=== PATIENT | male | born 1955 ===

== ENCOUNTER 2024-03-04 06:20 | Day surgery (SDC) | payer OTHER, SELFPAY ==
[2024-02-20 06:33] VITALS: BMI 29.8
[2024-02-20 08:51] LABS: Hematocrit 41.4 % (39.0-52.0); Hemoglobin 13.8 g/dL (13.0-18.0); Mean Corp Hgb Conc. 33.3 g/dL (33.0-37.0); Mean Corpuscular Hgb 30.7 pg (27.0-31.0); Mean Platelet Volume 10.6 fL (7.4-10.4); Platelet Count 221 10^3/uL (130-400); Red Cell Dist. Width 13.1 % (11.5-14.5); White Blood Cell Count 6.1 10^3/uL (4.8-10.8)
[2024-02-20 09:19] LABS: INR 1.06; PT 13.9 Sec (11.4-14.6)
[2024-02-20 09:20] LABS: APTT 29.9 Sec (23.4-35.0)
[2024-02-20 10:57] LABS: ALT (SGPT) 26 U/L (0-50); AST (SGOT) 36 U/L (17-59); Albumin 4.3 g/dl (3.5-5.0); Alkaline Phosphatase 37 U/L (38-126); Blood Urea Nitrogen 23 mg/dl (9-20); Calcium 11.5 mg/dl (8.4-10.2); Carbon Dioxide 30 mmol/L (22-30); Chloride 101 mmol/L (98-107); Estimated Creatinine Clearance 61 ml/min; Glucose 81 mg/dl (70-99); Sodium 140 mmol/L (135-145); Total Bilirubin 0.5 mg/dl (0.2-1.3); eGFR 59.84
[2024-03-04] VITALS (7 sets, daily range): BP systolic 114–136; BP diastolic 50–78; BMI 29.8
[2024-03-04] MEDS: TYLENOL 1000 MG PO (09:00)
[2024-03-04] MEDS: NEURONTIN 300 MG PO (09:00)
[2024-03-04] MEDS: HEPARIN 5000 UNITS SC (09:01)
[2024-03-04] MEDS: NORMOSOL-R 1000 IV (09:02)
[2024-03-04 10:41] LABS: Turbo PTH 568.5 pg/ml (13.6-85.8)
[2024-03-04 11:47] LABS: Turbo PTH 39.1 pg/ml (13.6-85.8)
--- NOTE | 2024-03-04 12:30 | OR.RPT ---
Operative Report
Operative Report
Patient Name: Gerda Lester
Date of : 1955
Date of Operation: March 04, 2024
Preoperative Diagnosis: �Hyperparathyroidism - E210
Postoperative Diagnosis: Same
Surgeon: Sami Cornejo M.D.
Operation: Minimally Invasive Right Superior Parathyroidectomy - 82079
Anesthesia: GET
Estimated Blood Loss: 5 cc
Drains: None
Specimen: Right superior neck nodule, rule out parathyroid adenoma
Complications: �None
Procedure:
The patient was taken to the operating room and placed in the usual supine position. After adequate general endotracheal anesthesia was established, the patient's neck was extended, prepped, and draped in the typical sterile fashion. A 4 cm
transcervical incision was made two fingerbreadths above the sternal notch. The skin incision was made with the #15 blade, and this was taken through the skin into the subcutaneous tissue. The underlying platysma muscle was divided, and subplatysmal
flaps were created superiorly to the thyroid cartilage and inferiorly to the sternal notch. Strap muscles were identified and at the midline.
Attention was turned to the patient's right side of the neck. The right thyroid lobe was mobilized medially. During this process, the right recurrent laryngeal nerve was identified and preserved throughout the surgery. The right upper neck nodule
was identified and noted to be enlarged, excised, and sent to the pathology department, which showed a hypercellular parathyroid gland. The normal-appearing right inferior parathyroid gland was identified and preserved. The intraoperative PTH levels
normalized.
After obtaining adequate hemostasis, the strap muscles were reapproximated with #3-0 Vicryl in a running fashion. The platysma muscle was reapproximated with #3-0 Vicryl in an interrupted fashion, and the skin was approximated with #4-0 Monocryl in
a running subcuticular fashion. The Steri-Strips and sterile dressings were placed. The patient tolerated the procedure well. The final instrument, needle, and sponge counts were correct. The patient was extubated and transferred to the PACU.
== END 2024-03-04 13:19 | disposition home or self-care (01) ==
LOC: SDS 06:20
PROVIDERS: ATTENDING PHYSICIAN Surgery; FAMILY PHYSICIAN Family Medicine; REFERRING PHYSICIAN Internal Medicine Endocrinology, Diabetes & Metabolism
DX: D35.1 Benign neoplasm of parathyroid gland (principal); E21.0 Primary hyperparathyroidism
CPT/HCPCS: 60500; 88305; 88332; 36415; 80053; 83970; 85027; 85610; 85730; 88331; 93005